=== PATIENT | male | born 1950 | race Caucasian/White ===

== ENCOUNTER → 2023-10-22 13:11 | Outpatient (BNVA) | payer OTHER, SELFPAY | PROVIDERS: Visit Provider Orthopaedic Surgery | DX: M54.50 Low back pain, unspecified (principal); G89.29 Other chronic pain; R10.9 Unspecified abdominal pain | CPT/HCPCS: 72070; 72100 ==

== ENCOUNTER 2023-11-07 14:17 | Outpatient (CLI) | payer MEDICARE, OTHER, SELFPAY ==
--- NOTE | 2023-11-07 14:23 | CTR_ITS ---
PROCEDURE INFORMATION: Exam: CT Chest With Contrast; Diagnostic Exam date and time: 11/07/2023 3:33 PM Age: 73 years old Clinical indication: Other: R10.9 - unspecified abdominal pain; Prior surgery; Surgery date: 6+ months; Surgery type: Kidney stone TECHNIQUE: Imaging protocol: Diagnostic computed tomography of the chest with contrast. Radiation optimization: All CT scans at this facility use at least one of these dose optimization techniques: automated exposure control; mA and/or kV adjustment per patient size (includes targeted exams where dose is matched to clinical indication); or iterative reconstruction. Contrast material: OMNIPAQUE 350; Contrast volume: 100 ml; Contrast route: INTRAVENOUS (IV); COMPARISON: CR XR thoracic spine 2V [id number] 10/22/2023 1:20 PM RADIATION DOSE METRICS: Total DLP (mGy-cm): 523.2 FINDINGS: Lungs: Unremarkable. No consolidation. No masses. Pleural spaces: Unremarkable. No pneumothorax. No pleural effusion. Heart: Unremarkable. No cardiomegaly. No pericardial effusion. Lymph nodes: Unremarkable. No enlarged lymph nodes. Vasculature: Unremarkable. No aortic aneurysm. Bones/joints: Unremarkable. No acute fracture. Soft tissues: Unremarkable. PROCEDURE INFORMATION: Exam: CT Abdomen And Pelvis With Contrast Exam date and time: 11/07/2023 3:33 PM Age: 73 years old Clinical indication: Other: R10.9 - unspecified abdominal pain; Prior surgery; Surgery date: 6+ months; Surgery type: Kidney stone TECHNIQUE: Imaging protocol: Computed tomography of the abdomen and pelvis with contrast. Radiation optimization: All CT scans at this facility use at least one of these dose optimization techniques: automated exposure control; mA and/or kV adjustment per patient size (includes targeted exams where dose is matched to clinical indication); or iterative reconstruction. Contrast material: OMNIPAQUE 350; Contrast volume: 100 ml; Contrast route: INTRAVENOUS (IV); COMPARISON: CR XR lumbar spine 2-3V* [id number] 10/22/2023 1:11 PM RADIATION DOSE METRICS: Total DLP (mGy-cm): 523.2 FINDINGS: Lungs: Lung bases are clear. No pleural effusion. Liver: Two tiny cysts involve the liver. Gallbladder and bile ducts: Normal. No calcified stones. No ductal dilation. Pancreas: Normal. No ductal dilation. Spleen: Normal. No splenomegaly. Adrenal glands: Normal. No mass. Kidneys and ureters: 7.2 cm simple cyst involves the left kidney. Stomach and bowel: Unremarkable. No obstruction. No mucosal thickening. Appendix: No evidence of appendicitis. Intraperitoneal space: Unremarkable. No free air. No significant fluid collection. Vasculature: Unremarkable. No abdominal aortic aneurysm. Lymph nodes: Unremarkable. No enlarged lymph nodes. Urinary bladder: There is diffuse, irregular wall thickening involving the bladder with severe bladder trabeculation. There is moderate dilatation of both ureters but I see no ureteral stone. Reproductive: The prostate gland is abnormally enlarged. Bones/joints: Unremarkable. No acute fracture. Soft tissues: Unremarkable. CT/CT chest abdpel w/*[id number] IMPRESSION: No acute findings. IMPRESSION: 1. Prostate enlargement with bladder wall thickening and trabeculation. Bilateral hydronephrosis also noted. These findings are felt to signify chronic bladder outlet obstruction. 2. A benign renal cyst or cysts have been detected. No further follow-up imaging is required. COMMENTS: Consistent with the [employer]'s Incidental Findings Committee white paper (J Am Hay Radiol 2018): Any incidental renal lesion less than 1 cm or classified as too small to characterize, or any incidental cystic renal lesion characterized as simple-appearing, is likely benign. No follow-up imaging is recommended for these lesions per consensus recommendations based on imaging criteria.
[2023-11-07] MEDS: iohexol 350 mg/mL 500 mL Btl (per mL) PO (15:00)
[2023-11-07] MEDS: iohexol 350 mg/mL 500 mL Btl (per mL) IV (15:42)
== END 2023-11-07 14:18 | disposition home or self-care (01) ==
LOC: RAD 14:17
PROVIDERS: Visit Provider Orthopaedic Surgery
DX: R10.9 Unspecified abdominal pain (principal)
CPT/HCPCS: 71260; 74177; Q9967